=== PATIENT | male | born 1950 | race Caucasian/White ===

== ENCOUNTER 2018-03-06 10:46 | Day surgery (SDC) | payer OTHER ==
[~2018-03-06] VITALS: Ht 182.9 cm; Wt 118.6 kg
[~2018-03-06 10:46] MED LIST: ASPIR 8181 MG PO; CEPHALEXIN500 MG PO; DILTZAC ER240 MG PO; DOK100 MG PO; FENOFIBRATE54 MG PO; FUROSEMIDE20 MG PO; GEMFIBROZIL600 MG PO; HYDROMORPHONE HC4 MG PO; LIPITOR40 MG PO; LISINOPRIL20 MG PO; METOPROLOL SUC200 MG PO; METOPROLOL TART25 MG PO; NORCO 5-325 TA1 EACH PO; OXYCODONE HCL5 MG PO; PRADAXA150 MG PO; VIAGRA100 MG PO
--- NOTE | 2018-03-06 12:59 | NUR ---
03/06/18 1259 Tammie Licona 1247-PATIENT ARRIVED TO PACU ON 2L NC WEANED TO RA. RR EVEN. PATIENT AWAKE DENIES PAIN OR NAUSEA. SB HR 40'S. 1259-PATIENT AWAKE DENIES PAIN OR NAUSEA. BANDAID TO LEFT BACK CDI. PATIENT TAKES METOPROLOL AT HOME.
--- NOTE | 2018-03-07 00:55 | EKG ---
[facility] [address] [facility] [place] [address] Signed Marked sinus bradycardia with 1st degree AV block Right bundle branch block Abnormal ECG No previous ECGs available Confirmed by UYEN MUNSON MD ([id number]) on 03/07/2018 12:55:32 AM Electronically Signed By: UYEN MUNSON MD 03/07/18 0055 PATIENT NAME: RUKHSANAFRANCISCO Electrocardiogram DATE OF : 48 PHYSICIAN: UYEN MUNSON MD REPORT #: [id number] REPORT IS CONFIDENTIAL AND NOT TO BE RELEASED WITHOUT AUTHORIZATION
[2018-04-19] MEDS ORDERED: ACYCLOVIR800 MG PO (10:19)
[2018-04-19] MEDS ORDERED: LEVAQUIN750 MG PO (10:19)
[2018-04-19] MEDS ORDERED: DIFLUCAN200 MG PO (10:19)
[2018-04-19] MEDS ORDERED: ALLOPURINOL300 MG PO (10:19)
[2018-04-19] MEDS ORDERED: ATIVAN1 MG PO (10:20)
== END 2018-03-06 13:52 | disposition home or self-care (01) ==
LOC: OPS 10:46 → DS 10:46 → OPS 12:00 → DS 12:00 → OPS 13:52
PROVIDERS: Specialist
PROC: 079T3ZX Drainage of Bone Marrow, Percutaneous Approach, Diagnostic (ICD-10-PCS; 2018-03-06)
PROC: 07DR3ZX Extraction of Iliac Bone Marrow, Percutaneous Approach, Diagnostic (ICD-10-PCS; principal; 2018-03-06 12:00)
DX: D72.819 Decreased white blood cell count, unspecified (principal); D61.818 Other pancytopenia; E78.5 Hyperlipidemia, unspecified; G47.30 Sleep apnea, unspecified; N40.0 Benign prostatic hyperplasia without lower urinary tract symptoms; Z79.899 Other long term (current) drug therapy; Z79.82 Long term (current) use of aspirin; Z88.8 Allergy status to other drugs, medicaments and biological substances
CPT/HCPCS: 85025; 93005; 93010; 99152; 99153; J2250; J3010; J7120

== ENCOUNTER 2018-05-15 10:56 | Day surgery (SDC) | payer OTHER ==
[~2018-05-15] VITALS: Ht 182.9 cm; Wt 115.4 kg
[~2018-05-15 10:56] MED LIST changes: +ACYCLOVIR800 MG PO; +ALLOPURINOL300 MG PO; +ATIVAN1 MG PO; +DIFLUCAN200 MG PO; +LEVAQUIN750 MG PO
--- NOTE | 2018-05-15 12:46 | NUR ---
1200 dr amezquita has been in to see pt and rash. to go ahead with procedure today.
--- NOTE | 2018-05-15 12:47 | NUR ---
dory miranda rn placed iv saida by ultra sound at 1135.
--- NOTE | 2018-05-15 13:27 | NUR ---
05/15/18 [id number] Tammie Licona 1323-PATIENT TO PACU ON 2L NC RR EVEN. PATIENT AWAKE OFF AND ON DENIES PAIN OR NAUSEA. BANDAID CDI. PATIENT LAYING PRONE AND REPORTS COMFORTABLE. HX OF AFIB. PATIENT DOZES BACK TO SLEEP.
== END 2018-05-15 14:40 | disposition home or self-care (01) ==
LOC: OPS 10:56 → DS 10:56 → OPS 13:00
PROVIDERS: Specialist
PROC: 079T3ZX Drainage of Bone Marrow, Percutaneous Approach, Diagnostic (ICD-10-PCS; 2018-05-15)
PROC: 07DR3ZX Extraction of Iliac Bone Marrow, Percutaneous Approach, Diagnostic (ICD-10-PCS; principal; 2018-05-15 13:00)
DX: C91.40 Hairy cell leukemia not having achieved remission (principal); D70.9 Neutropenia, unspecified; D69.6 Thrombocytopenia, unspecified; I48.91 Unspecified atrial fibrillation; E78.5 Hyperlipidemia, unspecified; G47.30 Sleep apnea, unspecified; Z88.8 Allergy status to other drugs, medicaments and biological substances; Z79.899 Other long term (current) drug therapy; Z79.82 Long term (current) use of aspirin
CPT/HCPCS: 80053; 83615; 85025; 99152; 99153; J2250; J3010; J7120